=== PATIENT | female | born 1960 | race Caucasian/White ===

== ENCOUNTER 2023-08-17 14:47 | Emergency (ER) | payer OTHER ==
[~2023-08-17] VITALS: Ht 167.6 cm; Wt 70.3 kg
[2023-08-17 14:50] VITALS: BP_SYST 102; PULSE 88; RESP 19; TEMP 98; O2SAT 93
[2023-08-17 15:33] LABS: BASOPHILS # (AUTO) 0.1 K/uL (0.0-0.2); EOSINOPHILS # (AUTO) 0.1 K/uL (0.0-0.4); HEMOGLOBIN 13.9 g/dL (12.0-16.0); MONOCYTES # (AUTO) 0.4 K/uL (0.0-1.0); PLATELET COUNT (AUTO) 279 K/uL (130-430); WHITE BLOOD COUNT (AUTO) 7.7 K/uL (4.8-10.8)
[2023-08-17 15:45] LABS: PROTHROMBIN TIME 10.6 SECS (9.5-12.5)
[2023-08-17 15:46] LABS: BASOPHILS % (AUTO) 0.9 % (0.0-2.0); EOSINOPHILS % (AUTO) 1.7 % (0.0-4.0); HEMATOCRIT 40.3 % (36-48); LYMPHOCYTES # (AUTO) 3.7 K/uL (1.0-5.5); LYMPHOCYTES % (AUTO) 47.6 % (20.5-51.5); MEAN CORPUSCULAR HEMOGLOBIN 30 pg (27-31); MEAN CORPUSCULAR HGB CONC 35 % (32-36); MEAN CORPUSCULAR VOLUME 88 fL (79.0-98.0); MONOCYTES % (AUTO) 4.8 % (1.7-9.3); NEUTROPHILS # (AUTO) 3.5 K/uL (1.8-7.7); RED CELL DISTRIBUTION WIDTH 14.2 % (9.0-15.0)
[2023-08-17 15:55] LABS: ALANINE AMINOTRANSFERASE 34 U/L (12-78); ALBUMIN 3.8 g/dL (3.4-4.8); ANION GAP 11 (5-15); ASPARTATE AMINOTRANSFERASE 37 U/L (10-37); CALCIUM 7.9 mg/dL (8.4-11.0); CARBON DIOXIDE 26 mmol/L (23-29); CHLORIDE 106 mmol/L (98-107); GFR AFRICAN AMERICAN 59 mL/min (>90); GLUCOSE 98 mg/dL (74-106); POTASSIUM 3.5 mmol/L (3.5-5.1); SODIUM SERUM 143 mmol/L (136-145); TOTAL BILIRUBIN 0.4 mg/dL (0.0-1.0); TOTAL PROTEIN, SERUM 7.7 g/dL (6.4-8.3); UREA NITROGEN, BLOOD 15 mg/dL (8-21)
[2023-08-17 15:58] LABS: GFR NON AFRICAN-AMERICAN 48 mL/min (>90)
[2023-08-17] MEDS ORDERED: DIPHENHYDRAMINE INJ 50 MG/ML VIAL IM ONE (16:00)
[2023-08-17] MEDS ORDERED: HALOPERIDOL LACTATE 5 MG/ML VIAL IM ONE (16:00)
[2023-08-17] MEDS ORDERED: LORazepam 2 MG/ML VIAL IM ONE (16:00)
[2023-08-17 16:09] LABS: BILIRUBIN,DIRECT 0.1 mg/dL (0.0-0.3); CREATINE KINASE, TOTAL 241 U/L (26-192); SALICYLATE 1 mg/dL (3-30)
[2023-08-17 16:19] LABS: ACETAMINOPHEN < 1 ug/mL (1-30); ALCOHOL, BLOOD 446 mg/dL (<10)
[2023-08-17] MEDS ORDERED: NACL 0.9% 2,000 ML IV ONE (16:30)
[2023-08-17 17:22] LABS: CKMB RELATIVE INDEX 0.7 (0.0-2.9); CREATINE KINASE MB 1.6 ng/mL (0-3.6)
[2023-08-17] MEDS ORDERED: LORA-259 PO (22:09)
[2023-08-18 05:12] VITALS: BP_SYST 108; PULSE 72; RESP 17; TEMP 97.9; O2SAT 96
== END 2023-08-18 05:12 | disposition home or self-care (01) ==
LOC: SED 14:47
DX: F10.10 Alcohol abuse, uncomplicated (principal); R41.82 Altered mental status, unspecified; Z79.899 Other long term (current) drug therapy; Y90.6 Blood alcohol level of 120-199 mg/100 ml
CPT/HCPCS: 99285; 96360; 70450; 71045; 80076; 80048; 82140; 82550; 82553; 82962; 83880; 85025; 85610; 85730; 84484; 36415; 93005; 76376; 96372; 83605; 82397; G0482; J1200; J1630; J2060; J7030; G0480; G0481